=== PATIENT | female | born 1945 | race Caucasian/White ===

== ENCOUNTER 2018-05-21 12:16 | Outpatient (CLI) | payer OTHER ==
[~2018-05-21 12:16] MED LIST: HYZAAR 50/12.51 TAB; SYNTHROID50 MCG
== END 2018-05-21 12:26 | disposition home or self-care (01) ==
LOC: RAD 12:16 → MRI 13:15
DX: M25.561 Pain in right knee (principal); M25.562 Pain in left knee
CPT/HCPCS: 73718

== ENCOUNTER 2018-12-22 | Emergency (ER) | payer OTHER ==
[~2018-12-22] VITALS: Ht 157.5 cm; Wt 67.1 kg
[2018-12-22] MEDS ORDERED: URIN D.S. TABL1 EACH PO (04:39)
[2018-12-22] MEDS ORDERED: BACTRIM DS TAB1 EACH PO (04:39)
== END 2018-12-22 05:18 | disposition home or self-care (01) ==
LOC: ER
DX: N39.0 Urinary tract infection, site not specified (principal); B96.89 Other specified bacterial agents as the cause of diseases classified elsewhere; R31.0 Gross hematuria

== ENCOUNTER 2020-03-02 10:05 | Outpatient (CLI) | payer OTHER ==
[~2020-03-02 10:05] MED LIST changes: +BACTRIM DS TAB1 EACH PO; +URIN D.S. TABL1 EACH PO
== END 2020-03-02 15:00 | disposition home or self-care (01) ==
LOC: LAB 10:05
DX: D50.8 Other iron deficiency anemias (principal); I10 Essential (primary) hypertension; C18.2 Malignant neoplasm of ascending colon; Z80.0 Family history of malignant neoplasm of digestive organs; D51.3 Other dietary vitamin B12 deficiency anemia; E55.9 Vitamin D deficiency, unspecified; R73.01 Impaired fasting glucose; E78.49 Other hyperlipidemia; E03.8 Other specified hypothyroidism; A05.1 Botulism food poisoning; A09 Infectious gastroenteritis and colitis, unspecified; R19.5 Other fecal abnormalities; D51.8 Other vitamin B12 deficiency anemias; K90.89 Other intestinal malabsorption; R97.0 Elevated carcinoembryonic antigen [CEA]

== ENCOUNTER 2022-12-02 10:01 | Outpatient (CLI) | payer OTHER | END 2022-12-02 10:07 | disposition home or self-care (01) | LOC: MAMO-SONO 10:01 | PROVIDERS: ATTEND Internal Medicine Hematology & Oncology | DX: Z12.31 Encounter for screening mammogram for malignant neoplasm of breast (principal); N63.0 Unspecified lump in unspecified breast; N64.4 Mastodynia ==

== ENCOUNTER → 2022-12-02 | Outpatient (CLI) | payer OTHER | END | disposition home or self-care (01) | LOC: NUCLEAR 10-15 11:30 | PROVIDERS: ATTEND Internal Medicine Hematology & Oncology | DX: I82.432 Acute embolism and thrombosis of left popliteal vein (principal); C18.2 Malignant neoplasm of ascending colon; Z80.0 Family history of malignant neoplasm of digestive organs; D51.3 Other dietary vitamin B12 deficiency anemia; E55.9 Vitamin D deficiency, unspecified; R73.01 Impaired fasting glucose; E78.5 Hyperlipidemia, unspecified; I10 Essential (primary) hypertension; E03.8 Other specified hypothyroidism; A05.1 Botulism food poisoning; A09 Infectious gastroenteritis and colitis, unspecified; M81.0 Age-related osteoporosis without current pathological fracture ==

== ENCOUNTER 2023-01-09 10:47 | Outpatient (CLI) | payer OTHER | END 2023-01-09 10:53 | disposition home or self-care (01) | LOC: LAB 10:47 | PROVIDERS: ATTEND Internal Medicine Gastroenterology | DX: K59.00 Constipation, unspecified (principal); K57.30 Diverticulosis of large intestine without perforation or abscess without bleeding; R10.9 Unspecified abdominal pain; Z85.038 Personal history of other malignant neoplasm of large intestine ==

== ENCOUNTER 2023-01-14 07:52 | Outpatient (CLI) | payer OTHER | END 2023-01-14 08:03 | disposition home or self-care (01) | LOC: TOM 07:52 | PROVIDERS: ATTEND Internal Medicine Gastroenterology | DX: R10.9 Unspecified abdominal pain (principal); Z85.038 Personal history of other malignant neoplasm of large intestine | CPT/HCPCS: 74177; Q9965 ==